=== PATIENT | male | born 1995 | race Hispanic/Latino ===

== ENCOUNTER 2022-02-09 16:14 | Emergency (ER) | payer BC, OTHER ==
[~2022-02-09] VITALS: Ht 180.3 cm; Wt 83.9 kg
[2022-02-09] MEDS ORDERED: LIDOCAINE HCL MPF 1% 5ML VIAL ONE (16:50)
[2022-02-09] MEDS ORDERED: SULF1TAB42 PO (16:59)
[2022-02-09] MEDS ORDERED: SULFAMETHOX-TMP DS 800/160 TAB PO SCH (17:00)
[2022-02-09 17:56] VITALS: BP 124/74
== END 2022-02-09 17:56 | disposition home or self-care (01) ==
LOC: EDH 16:14
DX: L02.415 Cutaneous abscess of right lower limb (principal)
CPT/HCPCS: 10060; 99283; J3490